=== PATIENT | female | born 1955 | race Caucasian/White ===

== ENCOUNTER 2018-03-30 05:56 | Day surgery (SDC) | payer BC ==
--- NOTE | 2018-03-16 13:30 | HP ---
CC: Dr. Long at [facility]. * ADMISSION HISTORY AND PHYSICAL: DATE OF ADMISSION: 03/30/18 ATTENDING SURGEON: Dr. Lit Callejas.* (DICTATED BY VIBHA WARD) CHIEF COMPLAINT: Umbilical hernia. HISTORY OF PRESENT ILLNESS: This is a 62-year-old hypertensive female with at least a 2-year history of notable umbilical bulge. She states that it has never been symptomatic, but has increased in size in the past 2 years. She was referred by her primary care provider, Dr. Long, for evaluation and was seen in the office by Dr. Callejas on 02/03/18. His exam at that time confirmed the presence of a reducible, nontender, umbilical hernia. Because of the increase in size, recommendation was made for repair and Dr. Callejas has outlined the methods thereof. The patient understands the indications for surgery, the risks, benefits, and alternatives and would like to proceed as scheduled with open repair of umbilical hernia with mesh. PAST MEDICAL HISTORY: Hypertension, obesity, nontoxic thyroid goiter. PAST SURGICAL HISTORY: Previous surgeries include dental extractions and 2 vaginal deliveries without any problems reported. CURRENT MEDICATIONS: 1. Losartan 25 mg once daily. 2. Hydrochlorothiazide 25 mg once daily. 3. Aspirin 81 mg once daily (the patient instructed to hold preoperatively, her last dose being 03/20/18). 4. Multivitamin once daily. DRUG ALLERGIES: SULFA (unspecified childhood reaction). FAMILY HISTORY: Negative for anesthesia problems, bleeding, or clotting disorders. 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 She denies tobacco use. She drinks on average 2 to 3 glasses of wine per day. She denies any other recreational drug use. REVIEW OF SYSTEMS: General: No recent constitutional symptoms or acute illnesses. Her weight has been stable, though she has been making efforts to both modify her diet and increase her physical activity. Eyes: No recent changes noted. Ears, Nose, Throat: No problems reported. Cardiovascular: She is treated for hypertension and per Dr. Long' notes has borderline control. No chest pain, palpitations, history of FL, or angina. Respiratory: No history of asthma, chronic cough, or shortness of breath. GI: No problems reported. She has never had a screening colonoscopy, though is considering that in the near future once she recovers from her surgery. She denies any changes in her stools or blood per rectum. : No problems reported. 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 Breast exam and mammogram done yearly with no problems reported. Endocrine: No diabetes, though she is followed closely including recent A1c, though she is not aware of the specific results. She is apparently euthyroid, though has some thyroid enlargement and is status post an aspiration biopsy that she states was negative. She has no symptoms of dysphagia or shortness of breath or pain in the neck. Musculoskeletal: No problems reported. Neuro/Psych: No problems reported. Remaining review of systems is negative. PHYSICAL EXAMINATION GENERAL: Well-nourished, mildly obese female, in no acute distress. VITAL SIGNS: Height 5 feet 5 inches, weight 185 pounds, BMI 30.8. Blood pressure 146/90, pulse 68, respirations 16. HEENT: Pupils are equal, round, and reactive. EOMs intact. No conjunctival pallor. Oropharynx: Teeth in good repair. No intraoral lesions. NECK: No lymphadenopathy in the cervical or supraclavicular regions. The thyroid is full by palpation with predominance on the left both by palpation and visual inspection, though without any discrete nodules or masses. The thyroid is nontender. LUNGS: Clear to auscultation. No rales or wheezes. HEART: Regular rate and rhythm. No murmur noted. BREASTS: Not examined. ABDOMEN: Obese. There is an obvious umbilical hernia in the superior portion of the umbilicus. This is nontender to palpation and feels reducible to a defect of approximately 2.5 cm by my exam. The remainder of the abdomen is soft , nontender and without palpable masses or organomegaly. GENITALIA: Not examined. RECTAL: Not examined. BACK: No spinous process or CVA tenderness. EXTREMITIES: No edema. She has a few varicosities on the right lower extremity. NEUROLOGICAL: Grossly intact. SKIN: Warm and dry. No suspicious rashes or lesions noted, though full skin survey not performed. IMPRESSION: Umbilical hernia. PLAN: Open repair of umbilical hernia with mesh. VIBHA WARD [id number]/[facility] #: [id number] DARION
[~2018-03-30 05:56] MED LIST: Buffered Lidocaine 0.9% SYRIN* 5 ML/SYR SYRINGE INTRADERM ONE
[2018-03-30] MEDS ORDERED: Famotidine IV* 10 MG/ML 2 ML (20 mg) IV ONE (06:00)
[2018-03-30] MEDS ORDERED: Metoclopramide TAB* 10 MG PO ONE (06:00)
[2018-03-30] MEDS ORDERED: Famotidine IV* 10 MG/ML 2 ML (20 mg) ONE (06:10)
[2018-03-30] MEDS ORDERED: Buffered Lidocaine 0.9% SYRIN* 5 ML/SYR SYRINGE ONE (06:11)
[2018-03-30] MEDS ORDERED: Metoclopramide TAB* 10 MG ONE (06:11)
[2018-03-30] MEDS ORDERED: ceFAZolin 2 GM PREMIX (*) 2 GM/50 ML BAG IVPB ONE (06:11)
[2018-03-30] MEDS ORDERED: Lidocaine 1% MPF wEPI 200,000* 30 ML SDV ONE (07:14)
[2018-03-30] MEDS ORDERED: Lidocaine 2% PF * 5 ML VIAL ONE (07:14)
[2018-03-30] MEDS ORDERED: Ondansetron ODT TAB* 4 MG ONE (07:14)
[2018-03-30] MEDS ORDERED: Bupivacaine 0.5% SDV PF* 30ML VIAL ONE (07:14)
[2018-03-30] MEDS ORDERED: Dexamethasone IV* 4 MG/ML 1 ML (4 MG) ONE (07:14)
[2018-03-30] MEDS ORDERED: Propofol* 10 MG/ML 20 ML BTL IV PUSH ONE (07:14)
[2018-03-30] MEDS ORDERED: Ketorolac INJ* 30 MG/ML 1 ML VIAL ONE (07:14)
[2018-03-30] MEDS ORDERED: fentaNYL* 50 MCG/ML 2 ML VIAL (100 MCG VIAL) ONE (07:15)
[2018-03-30] MEDS ORDERED: Midazolam* 1 MG/ML 10 ML VIAL (10 MG) ONE (07:15)
[2018-03-30] MEDS ORDERED: KETAMINE HCL* 50 MG/ML 10 ML VIAL ONE (07:15)
[2018-03-30] MEDS ORDERED: Naloxone* 0.4 MG/ML 1 ML VIAL IV PRN (07:27)
[2018-03-30] MEDS ORDERED: fentaNYL* 50 MCG/ML 2 ML VIAL (100 MCG VIAL) IV PRN (07:27)
[2018-03-30] MEDS ORDERED: Ondansetron INJ* 2 MG/ML VIAL IV PRN (07:27)
[2018-03-30] MEDS ORDERED: oxyCODONE/Acetamin 5/325 MG* TAB PO PRN (07:27)
[2018-03-30] MEDS ORDERED: Cisatracurium* 2 MG/ML MDV 5 ML ONE (07:45)
[2018-03-30] MEDS ORDERED: Neostigmine Methylsulfate* 1 MG/ML 10 ML VIAL (1 mg/ml) ONE (08:18)
[2018-03-30] MEDS ORDERED: Glycopyrrolate IV* 0.2 MG/ML 1 ML VIAL ONE (08:18)
--- NOTE | 2018-03-30 08:35 | PN ---
CC: Srikanth Long MD; [facility] * PROGRESS NOTE: DATE OF PROCEDURE: 03/30/18 Ms. Dubon is a 62-year-old female worked up as an outpatient with an umbilical hernia who was planned for open umbilical hernia repair with mesh. She was seen preoperatively and presented to the hospital on 03/30/18 where we discussed the case again and consent was signed and the patient was taken back to the operating room after marking. She underwent local MAC anesthesia which was converted to general anesthesia to help with evaluation of this large umbilical hernia. This was reduced and I noted an approximately 2 cm defect. On the inferior aspect of the defect was a palpable mass that extended right to the pubis. We, at this point, placed a Camilo catheter which only drained 100 cc and the mass persisted. It was unclear if this was uterine or colon or other findings, but it was approximately 7 cm in size at the lower mid abdomen. It was at this point that I made the decision to postpone the case given the fact that I think the patient would benefit from workup by both CAT scan and colonoscopy. This may represent fibroid uterus or a potential malignancy and for this reason I think the patient deserves a workup for this mass prior to any abdominal surgeries. The patient will be woken up and transferred to the PACU. Our plan will be for discharge today and followup closely. [id number]/[facility] #: [id number] MTDWendy
[2018-03-30 09:25] LABS: EGFR Non-African American 67.3 (>60)
[2018-03-30 10:06] VITALS: BP 135/68
== END 2018-03-30 10:34 | disposition home or self-care (01) ==
LOC: OR 05:56
PROVIDERS: ATTEND Surgery
DX: K42.9 Umbilical hernia without obstruction or gangrene (principal); Z53.09 Procedure and treatment not carried out because of other contraindication; R19.09 Other intra-abdominal and pelvic swelling, mass and lump; I10 Essential (primary) hypertension; E66.9 Obesity, unspecified; E04.9 Nontoxic goiter, unspecified
CPT/HCPCS: 36415; 82565; 84520; A9270-GY; J0690; J1100; J1885; J2001; J2250; J2704; J2710; J3010

== ENCOUNTER 2018-04-17 08:07 | Emergency (ER) | payer BC ==
[2018-04-17] MEDS ORDERED: NS 0.9% 1000 ML* 1,000 ML IV ONE (09:37)
[2018-04-17] MEDS ORDERED: Iohexol 300* (CONTRAST) 10 ML SDV IV ONE (09:45)
[2018-04-17 10:20] LABS: ABS Basophils 0 10^3/ul (0-0.2); ABS Eosinophils 0.1 10^3/ul (0-0.6); ABS Monocytes 0.4 10^3/ul (0-0.8); ABS Neutrophils 5.1 10^3/ul (1.5-7.7); ABS Nucleated RBC 0 10^3/ul; Eosinophil % 1.1 % (0-6); Hematocrit 40 % (35-47); Hemoglobin 13.5 g/dl (12.0-16.0); Lymphocyte % 15.3 % (25-47); Mean Corpuscular HGB Conc 34 g/dl (31-36); Mean Corpuscular Hemoglobin 31 pg (27-31); Mean Corpuscular Volume 91 fL (80-97); Mean Platelet Volume 8.2 um3 (7.4-10.4); Nucleated Red Blood Cells % 0; Platelet Count 269 10^3/ul (150-450); Red Blood Count 4.34 10^6/ul (4.00-5.40); Red Cell Distribution Width 14 % (10.5-15); White Blood Count 6.6 10^3/ul (3.5-10.8)
[2018-04-17 10:29] LABS: INR 0.89 (0.77-1.02)
[2018-04-17 10:43] LABS: EGFR Non-African American 73.3 (>60)
--- NOTE | 2018-04-17 12:40 | RAD ---
Indication: Periumbilical pain. Contrast: Administered 105.1 ml of OMNIPAQUE 300 mg/ml CT of the abdomen and pelvis was performed after oral and IV contrast administration. Coronal and sagittal reconstructed images were obtained. Comparison is made with previous exam dated April 06, 2018. The lung bases demonstrate no pleural fluid, nodules or masses. Heart is of normal size without evidence of pericardial effusion. Liver is normal in size. No focal lesions or intrahepatic duct dilatation is noted. Gallbladder demonstrates no calcified gallstones, pericholecystic fluid or wall thickening. Pancreas demonstrates no mass effect or ductal dilatation. The spleen is normal in size. No adrenal lesions are noted. The kidneys demonstrate symmetric nephrograms without focal lesions. A small amount of ascites is noted in the left mid abdomen and right upper abdomen. There is contrast in the right colon. Multiloculated cystic mass is again noted in the pelvis unchanged in size since previous exam. There may be a slight increase in amount of ascites there is a periumbilical hernia containing omentum. There may be a slight increase in amount of fluid seen previously although overall does not appear to be significantly changed. There is suggestion of some wall thickening of several loops of small bowel in the right lower quadrant for which peritoneal or serosal carcinomatosis is not excluded. IMPRESSION: Large pelvic mass previously described is unchanged and is consistent with ovarian carcinoma. There is a periumbilical hernia containing fluid and reticulation which is unchanged from previous exam. There may BE slight increase in the amount of trace ascites noted.
[2018-04-17 13:00] LABS: Urine Appearance Clear; Urine Blood Negative (Negative); Urine Color Colorless; Urine Ketones Negative (Negative); Urine Protein Negative (Negative); Urine Specific Gravity 1.012 (1.010-1.030); Urine Urobilinogen Negative (Negative)
[2018-04-17 13:47] VITALS: BP 158/79
--- NOTE | 2018-04-17 16:11 | ED ---
Idris Perez SooYoung, scribed for Jacques Guzman MD on 04/17/18 at 0826 . Abdominal Pain/Female - HPI Summary HPI Summary: A 62 y/o F presents to ED with c/o severe abd pain onset this AM around 0715. Pain described as cramping directly over the hernia, and rated as 9 out of 10. Pain has resolved since arrival. Associated sx: mild vomiting. Denies CP, urinary and bowel sx or changes. Known umbilical hernia, dx a few years ago. Pt was scheduled for surgery two days ago, but did not have it per Dr. Callejas's request--a new mass was present on CT. Pt is scheduled to go to [place] for further evaluation tomorrow. - History of Current Complaint Stated Complaint: ABD PAIN Time Seen by Provider: 04/17/18 08:10 Hx Obtained From: Patient, Family/Assembly Manager - present Onset/Duration: Sudden Onset, Lasting Hours, Resolved Timing: Frequency Of Episodes - 1 Severity Initially: Moderate Severity Currently: None - at bedside Pain Intensity: 5 Pain Scale Used: 0-10 Numeric Location: Umbilical Radiates: No Character: Cramping Associated Signs and Symptoms: Positive: Vomiting. Negative: Chest Pain, Constipation, Blood in Stool, Urinary Symptoms, Diarrhea Allergies/Adverse Reactions: Allergies Allergy/AdvReac Type Severity Reaction Status Date / Time Sulfa (Sulfonamide Allergy Unknown Verified 04/17/18 08:14 Antibiotics) Reaction Details PMH/Surg Hx/FS Hx/Imm Hx Previously Healthy: No Endocrine/Hematology History: Denies: Hx Diabetes, Hx Anemia Comment Only: Hx Thyroid Disease - EXAM 2017, SLIGHTLY ENLARGED, TESTED ALL OK Cardiovascular History: Reports: Hx Hypertension GI History: Denies: Hx Jaundice History: Denies: Hx Renal Disease Sensory History: Reports: Hx Contacts or Glasses - GLASSES Opthamlomology History: Reports: Hx Contacts or Glasses - GLASSES - Cancer History Hx Chemotherapy: No Hx Radiation Therapy: No - Surgical History Surgery Procedure, Year, and Place: [facility]ILD [facility] 1978, 1982 & 1985 [facility] Hx Anesthesia Reactions: Yes - SEE ABOVE NOTE Infectious Disease History: No Infectious Disease History: Reports: Traveled Outside the [place] in Last 30 Days - [place] - Social History Occupation: Employed Full-time - SELF Lives: With Family Alcohol Use: Daily Alcohol Amount: wine mostly Hx Substance Use: No Substance Use Type: Reports: None Hx Tobacco Use: Yes Smoking Status (MU): Former Smoker Type: Cigarettes Have You Smoked in the Last Year: No Review of Systems Negative: Chest Pain Positive: Abdominal Pain, Vomiting Positive: no symptoms reported All Other Systems Reviewed And Are Negative: Yes Physical Exam - Summary Physical Exam Summary: General: well-appearing, no pain distress Skin: warm, color reflects adequate perfusion, dry Head: normal Eyes: EOMI, BLANKA ENT: normal Neck: supple, nontender Respiratory: CTA, breath sounds present Cardiovascular: RRR Abdomen: umbilical hernia reducible, nontender Bowel: present Musculoskeletal: normal, strength/ROM intact Neurological: sensory/motor intact, A&O x3 Psychological: affect/mood appropriate Triage Information Reviewed: Yes Vital Signs On Initial Exam: Initial Vitals Temp Pulse Resp BP Pulse Ox 97.7 F 55 16 211/83 100 04/17/18 08:16 04/17/18 08:16 04/17/18 08:16 04/17/18 08:16 04/17/18 08:16 Vital Signs Reviewed: Yes Diagnostics - Vital Signs Vital Signs Temp Pulse Resp BP Pulse Ox 04/17/18 08:16 97.7 F 55 16 211/83 100 - Laboratory Lab Results: Lab Results 04/17/18 04/17/18 04/17/18 Range/Units 10:03 10:03 10:03 WBC 6.6 (3.5-10.8) 10^3/ul RBC 4.34 (4.00-5.40) 10^6/ul Hgb 13.5 (12.0-16.0) g/dl Hct 40 (35-47) % MCV 91 (80-97) fL MCH 31 (27-31) pg MCHC 34 (31-36) g/dl RDW 14 (10.5-15) % Plt Count 269 (150-450) 10^3/ul MPV 8.2 (7.4-10.4) um3 Neut % (Auto) 77.6 (38-83) % Lymph % (Auto) 15.3 L (25-47) % Maury % (Auto) 5.4 (0-7) % Eos % (Auto) 1.1 (0-6) % Baso % (Auto) 0.6 (0-2) % Absolute Neuts (auto) 5.1 (1.5-7.7) 10^3/ul Absolute Lymphs (auto) 1.0 (1.0-4.8) 10^3/ul Absolute Monos (auto) 0.4 (0-0.8) 10^3/ul Absolute Eos (auto) 0.1 (0-0.6) 10^3/ul Absolute Basos (auto) 0 (0-0.2) 10^3/ul Absolute Nucleated RBC 0 10^3/ul Nucleated RBC % 0 INR (Anticoag Therapy) 0.89 (0.77-1.02) APTT 30.2 (26.0-36.3) seconds Sodium 140 (135-145) mmol/L Potassium 3.7 (3.5-5.0) mmol/L Chloride 104 (101-111) mmol/L Carbon Dioxide 28 (22-32) mmol/L Anion Gap 8 (2-11) mmol/L BUN 20 (6-24) mg/dL Creatinine 0.79 (0.51-0.95) mg/dL Est GFR ( Amer) 88.7 (>60) Est GFR (Non-Af Amer) 73.3 (>60) BUN/Creatinine Ratio 25.3 H (8-20) Glucose 126 H (70-100) mg/dL Lactic Acid (0.5-2.0) mmol/L Calcium 9.3 (8.6-10.3) mg/dL Total Bilirubin 0.50 (0.2-1.0) mg/dL AST 16 (13-39) U/L ALT 17 (7-52) U/L Alkaline Phosphatase 43 (34-104) U/L Total Protein 6.4 (6.4-8.9) g/dL Albumin 4.0 (3.2-5.2) g/dL Globulin 2.4 (2-4) g/dL Albumin/Globulin Ratio 1.7 (1-3) Lipase 22 (11.0-82.0) U/L Urine Color Urine Appearance Urine pH (5-9) Ur Specific Oxford (1.010-1.030) Urine Protein (Negative) Urine Ketones (Negative) Urine Blood (Negative) Urine Nitrate (Negative) Urine Bilirubin (Negative) Urine Urobilinogen (Negative) Ur Leukocyte Esterase (Negative) Urine Glucose (Negative) 04/17/18 04/17/18 Range/Units 10:03 12:25 WBC (3.5-10.8) 10^3/ul RBC (4.00-5.40) 10^6/ul Hgb (12.0-16.0) g/dl Hct (35-47) % MCV (80-97) fL MCH (27-31) pg MCHC (31-36) g/dl RDW (10.5-15) % Plt Count (150-450) 10^3/ul MPV (7.4-10.4) um3 Neut % (Auto) (38-83) % Lymph % (Auto) (25-47) % Maury % (Auto) (0-7) % Eos % (Auto) (0-6) % Baso % (Auto) (0-2) % Absolute Neuts (auto) (1.5-7.7) 10^3/ul Absolute Lymphs (auto) (1.0-4.8) 10^3/ul Absolute Monos (auto) (0-0.8) 10^3/ul Absolute Eos (auto) (0-0.6) 10^3/ul Absolute Basos (auto) (0-0.2) 10^3/ul Absolute Nucleated RBC 10^3/ul Nucleated RBC % INR (Anticoag Therapy) (0.77-1.02) APTT (26.0-36.3) seconds Sodium (135-145) mmol/L Potassium (3.5-5.0) mmol/L Chloride (101-111) mmol/L Carbon Dioxide (22-32) mmol/L Anion Gap (2-11) mmol/L BUN (6-24) mg/dL Creatinine (0.51-0.95) mg/dL Est GFR ( Amer) (>60) Est GFR (Non-Af Amer) (>60) BUN/Creatinine Ratio (8-20) Glucose (70-100) mg/dL Lactic Acid 1.7 (0.5-2.0) mmol/L Calcium (8.6-10.3) mg/dL Total Bilirubin (0.2-1.0) mg/dL AST (13-39) U/L ALT (7-52) U/L Alkaline Phosphatase (34-104) U/L Total Protein (6.4-8.9) g/dL Albumin (3.2-5.2) g/dL Globulin (2-4) g/dL Albumin/Globulin Ratio (1-3) Lipase (11.0-82.0) U/L Urine Color Colorless Urine Appearance Clear Urine pH 7.0 (5-9) Ur Specific Oxford 1.012 (1.010-1.030) Urine Protein Negative (Negative) Urine Ketones Negative (Negative) Urine Blood Negative (Negative) Urine Nitrate Negative (Negative) Urine Bilirubin Negative (Negative) Urine Urobilinogen Negative (Negative) Ur Leukocyte Esterase Negative (Negative) Urine Glucose Negative (Negative) Result Diagrams: 04/17/18 10:03 04/17/18 10:03 Lab Statement: Any lab studies that have been ordered have been reviewed, and results considered in the medical decision making process. - CT A/P CT CT Interpretation: No Acute Changes - IMPRESSION: Large pelvic mass previously described is unchanged and is consistent with ovarian carcinoma. There is a periumbilical hernia containing fluid and reticulation which is unchanged from previous exam. There may BE slight increase in the amount of trace ascites noted. ED physician has reviewed this report and agrees. CT Interpretation Completed By: Radiologist Re-Evaluation - Re-Evaluation 1 Re-Evaluation Time: 09:32 Change: Unchanged Comment: Discussing surgery consult with pt. Pt expressed desire for a CT, will comply. 2 Re-Evaluation Time: 13:12 Change: Improved Comment: Discussing CT results with pt and family. Pt's pain is still resolved, used bathroom, drank contrast with no issue. Abdominal Pain Fem Course/Dx - Course Course Of Treatment: THE PATIENT REPORTS THE PAIN WAS IN THE UMBILICAL HERNIA WHICH WAS ALSO FIRM DURING THE PAIN EPISODE. UPON EXAM IN ED, THERE WAS NO PAIN AND PATIENT REMAINED PAIN FREE IN THE ED. THE UMBILICAL HERNIA WAS EASILY REDUCIABLE. NORMAL BOWEL SOUNDS. DISCUSSED WITH DR GARCIA, SURGERY. SPOKE WITH THE PATIENT AND FAMILY. THEY PREFERED IMAGING AT THIS TIME DUE TO THE RECENT DISCOVERY OF THE ABDOMINAL MASS. DISCUSSED RESULTS WITH THE PATIENT AND HER FAMILY. SHE HAS F/U WITH A SURGEON IN [place] TOMORROW FOR THE MASS. PATIENT SENT WITH CT ON A DISC. WILL RETURN TO THE ED IF WORSE. - Diagnoses Provider Diagnoses: Abdominal pain, Umbilical hernia - Provider Notifications Discussed Care Of Patient With: Jhony Garcia - Surgery Time Discussed With Above Provider: 09:29 Instructed by Provider To: Other - If pt is pain free, no imaging necessary. Discharge - Sign-Out/Discharge Documenting (check all that apply): Discharge/Admit/Transfer - Discharge Plan Condition: Stable Disposition: HOME Patient Education Materials: Umbilical Hernia (ED), Acute Abdominal Pain (ED) Referrals: Srikanth Long MD [Primary Care Provider] - Additional Instructions: FOLLOW UP WITH YOUR SURGEON TOMORROW SCHEDULED. GET RECHECKED FOR ANY WORSENING OF YOUR CONDITION; PAIN, FEVER, VOMITING, YOU FEEL ILL OR QUESTIONS OR CONCERNS. - Billing Disposition and Condition Condition: STABLE Disposition: Home The documentation as recorded by the Idris hooper SooYoung accurately reflects the service I personally performed and the decisions made by me, Jacques Guzman MD.
== END 2018-04-17 13:48 | disposition home or self-care (01) ==
LOC: ED 08:07
DX: K42.9 Umbilical hernia without obstruction or gangrene (principal); R19.00 Intra-abdominal and pelvic swelling, mass and lump, unspecified site; Z87.891 Personal history of nicotine dependence; Z88.0 Allergy status to penicillin
CPT/HCPCS: 36415; 74177; 80053; 81003; 83605; 83690; 85025; 85610; 85730; 96360; 96361; 99283; Q9967